=== PATIENT | male | born 1995 | race Caucasian/White ===

== ENCOUNTER 2017-03-30 12:56 | Emergency (ER) | payer OTHER ==
[~2017-03-30] VITALS: Ht 177.8 cm; Wt 71.6 kg
[2017-03-30] MEDS ORDERED: NAPROSYN500 MG PO (15:16)
[2017-03-30] MEDS ORDERED: TRAMADOL HCL50 MG PO (15:16)
[2017-03-30 15:44] VITALS: BP 122/70
== END 2017-03-30 15:52 | disposition home or self-care (01) ==
LOC: EME 12:56
DX: S86.812A Strain of other muscle(s) and tendon(s) at lower leg level, left leg, initial encounter (principal); W18.39XA Other fall on same level, initial encounter; Y93.67 Activity, basketball; F17.200 Nicotine dependence, unspecified, uncomplicated
CPT/HCPCS: 73564; 99281; 99283